=== PATIENT | female | born 1950 | race African-American/Black ===

== ENCOUNTER 2017-08-27 11:13 | Inpatient (IN) | payer MEDICARE, OTHER ==
[2017-08-27] MEDS ORDERED: Ketorolac Tromethamine 30 MG/ML VIAL ONE (12:24)
--- NOTE | 2017-08-27 12:40 | RAD ---
RIGHT ANKLE 3 VIEWS: HISTORY: Tripped out of vehicle on gravel. Trauma. Pain. COMPARISON: None. FINDINGS: There is a trimalleolar fracture with a transverse medial malleolar fracture as well as an obliquely oriented fibula fracture through the syndesmosis and posterior malleolar fracture coronal oblique. IMPRESSION: Supination and external rotation stage 4 injury with syndesmotic injury. POS: [facility]
[2017-08-27 12:54] LABS: #Lymphocytes 1.5 thou/uL (1.20-3.40); #Monocytes 0.5 thou/uL (0.11-0.59); #Neutrophils 5.5 thou/uL (1.40-6.50); %Basophils 0.6 % (0.0-1.0); %Lymphocytes 20.1 % (21.0-51.0); %Monocytes 6.5 % (0.0-10.0); Hematocrit 35.5 % (36.0-47.0); Mean Platelet Volume 7.7 fL (7.4-10.4); Red Blood Cell (RBC) Count 3.78 mill/uL (4.20-5.40); White Blood Cell (WBC) Count 7.5 thou/uL (4.8-10.8)
[2017-08-27 13:14] LABS: ALT (SGPT) 41 U/L (8-55); AST (SGOT) 32 U/L (5-34); Alkaline Phosphatase 90 U/L (40-150); Anion Gap 11 mmol/L (10-20); BUN (Urea Nitrogen) 19 mg/dL (9.8-20.1); Bilirubin, Total 0.4 mg/dL (0.2-1.2); Calc. Creatinine Clearance 0 mL/min (70-130); Calcium 10.2 mg/dL (7.8-10.44); Carbon Dioxide 26 mmol/L (23-31); Chloride 107 mmol/L (98-107); Estimated GFR-MDRD 67; Globulin 2.9 g/dL (2.4-3.5); Protein, Total 7.1 g/dL (6.0-8.3)
--- NOTE | 2017-08-27 13:16 | RAD ---
CHEST 1 VIEW: HISTORY: Preop. COMPARISON: None. FINDINGS: Lungs are clear. No pneumothorax or effusion. Cardiac silhouette and mediastinal contours are norm al. Prior median sternotomy. IMPRESSION: No acute intrathoracic abnormality. POS: [facility]
[2017-08-27] MEDS ORDERED: CEFAZOLIN/Water 2 GM/20 ML SYRINGE ONE (14:59)
[2017-08-27] MEDS ORDERED: Dexamethasone 20 MG/5 ML VIAL ONE (15:35)
[2017-08-27] MEDS ORDERED: Propofol 200 MG/20 ML VIAL ONE (15:35)
[2017-08-27] MEDS ORDERED: Ondansetron HCl/PF 4 MG/2 ML Vial ONE (15:35)
[2017-08-27] MEDS ORDERED: HYDROcodone/Acetaminophen 5/325 mg Tablet PO PRN (15:39)
[2017-08-27] MEDS ORDERED: Fentanyl 100 MCG/2 ML VIAL SLOW IVP PRN (15:40)
[2017-08-27] MEDS ORDERED: Ropivacaine 0.5% HCl/PF (150 MG/30 ML VIAL) ONE (16:27)
[2017-08-27] MEDS ORDERED: Meperidine HCl/PF 25 MG/ML VIAL ONE ×2 (16:35→16:36)
[2017-08-27] MEDS ORDERED: Promethazine HCl 25 MG/ML VIAL IM PRN (16:49)
[2017-08-27] MEDS ORDERED: Ondansetron HCl/PF 4 MG/2 ML Vial IVP PRN (16:49)
[2017-08-27] MEDS ORDERED: Promethazine HCl 25 MG/ML VIAL SLOW IVP PRN (16:49)
[2017-08-27 18:04] VITALS: BMI 28.3
[2017-08-27] MEDS: Sodium Chloride 0.9% 1,000 ML IV SCH (18:33)
--- NOTE | 2017-08-27 19:15 | OP ---
PREOPERATIVE DIAGNOSIS: Trimalleolar ankle fracture. POSTOPERATIVE DIAGNOSIS: Trimalleolar ankle fracture. SURGEON: Marino Martinez M.D. ANESTHESIA: General. BLOOD LOSS: Minimal. SPECIMEN: None. DRAINS: None. COMPLICATIONS: None. TOURNIQUET TIME: 26 minutes. DESCRIPTION OF PROCEDURE: The patient was taken to the operating room where general anesthesia was induced. She received Ancef preoperatively. Right leg was prepped and draped in the usual sterile fashion. After exsanguination, tourniquet was inflated to 300 mmHg. I made a lateral incision. Di ssection carried down to the fracture. The fracture was distracted. Hematoma was removed. The fra cture was irrigated. Periosteum was cleared. I clamped the fracture, placed a posterior to anterio r lag screw to compress the fracture and placed a 7-hole plate with appropriate screw lengths and ch ecked on biplane fluoroscopy. A medial incision was made. Dissection carried down to the medial ma lleolar fragment. I excised periosteum, distracted the fracture and irrigated the joint to clean th e bone surfaces of hematoma, the fracture was reduced into 24 mm. Synthes 3.5 mm cannulated screws were placed with good compression of the fracture. X-rays were once again obtained, which showed go od reduction and fixation and screw length. Tourniquet was released. Irrigation was performed and hemostasis obtained. Subcutaneous tissue closed with 2-0 Vicryl, the skin was closed with aneudy. The patient was placed in a bulky dressing and a posterior splint.
[2017-08-27] MEDS: HYDROcodone/Acetaminophen 5/325 mg Tablet PO PRN (19:55)
--- NOTE | 2017-08-27 20:31 | HP ---
PREOPERATIVE DIAGNOSIS: Right trimalleolar ankle fractures. HISTORY OF PRESENT ILLNESS: This is a very pleasant 67-year-old woman visiting here from [place]. She stepped out of her truck today and rolled her ankle on the step rail and landed on her ankle suf fering a trimalleolar ankle fracture. PAST MEDICAL HISTORY: Positive for diabetes and high cholesterol. ALLERGIES TO MEDICATIONS: None. SOCIAL HISTORY: She does not smoke or drink. She has a good family support. MEDICATIONS: Listed on the chart. PHYSICAL EXAMINATION: GENERAL: Shows a pleasant woman in no distress. HEENT: Normocephalic and atraumatic. LUNGS: Clear. HEART: Regular. ABDOMEN: Soft and nontender. EXTREMITIES: Right ankle shows swelling medially and laterally, but the swelling is mild. She has 1+ pulses. No skin breakdown. Good capillary refill. IMAGING DATA: Radiographs showed trimalleolar ankle fracture. ASSESSMENT AND PLAN: Open reduction and internal fixation. We discussed the options, informed her I will be happy to splint her and let her go back to [place] to have surgery. She would rather have surgery here. She understands the risk of infection, stiffness, nerve or blood vessel damage, poss ible need to remove hardware, blood clots and . She would like to proceed with surgery.
[2017-08-27] MEDS ORDERED: HumaLOG 300 UNITS/3 ML VIAL SC PRN ×2 (22:42)
[2017-08-27] MEDS ORDERED: Dextrose 5% in Water 1,000 ML IV PRN (22:42)
[2017-08-27] MEDS ORDERED: Dextrose 50% Abboject 50 ML SYRINGE IVP PRN (22:42)
[2017-08-28] MEDS: HYDROcodone/Acetaminophen 5/325 mg Tablet PO PRN (01:13)
[2017-08-28] MEDS ORDERED: Enoxaparin Sodium 30 MG/0.3 ML SYRINGE SC SCH ×2 (09:00)
[2017-08-28] MEDS ORDERED: FLU VACC TS2017-18 (>65YR) 0.5 ML SYRINGE IM ONE (09:00)
[2017-08-28] MEDS ORDERED: Montelukast Sodium 10 mg Tablet PO SCH (09:00)
[2017-08-28] MEDS ORDERED: Metoprolol Tartrate 25 MG TAB PO SCH (09:00)
[2017-08-28] MEDS ORDERED: busPIRone HCl 10 MG TAB PO SCH (09:00)
[2017-08-28] MEDS ORDERED: Fluticasone Propionate Nasal Spray 16 gm Bottle NASAL SCH (09:00)
--- NOTE | 2017-08-28 10:24 | RAD ---
RIGHT ANKLE 3 VIEWS: HISTORY: Fracture repair. COMPARISON: Ankle radiographs prior day. FINDINGS: Satisfactory alignment of the medial malleolar and distal fibular fractures with retrograde cannulat ed screws to the medial malleolus as well as plate and screw fixation and interfragmentary screw of the distal fibula. No syndesmotic screw is seen. Therefore, syndesmotic injury ligament testing wa s likely performed intraoperatively. IMPRESSION: Satisfactory appearance post fixation. POS: [facility]
--- NOTE | 2017-08-28 11:54 | PDOC.PN ---
- Subjective Encounter Start Date: 08/28/17 Encounter Start Time: 11:00 Subjective: no pain, feels better -: is trying to amb with her walker without bearing wtg on right -: no sob or chest pain - Objective MAR Reviewed: Yes Vital Signs & Weight: Vital Signs (12 hours) Temp Pulse Resp BP Pulse Ox 08/28/17 08:00 98.2 F 65 14 08/28/17 07:45 98.2 F 65 14 114/72 96 08/27/17 23:55 98.1 F 100 18 101/61 99 Weight Weight 140 lb I&O: 08/27/17 08/28/17 08/29/17 06:59 06:59 06:59 Intake Total 420 Balance 420 Result Diagrams: 08/27/17 12:43 08/27/17 12:43 Additional Labs: Accuchecks 08/28/17 08/28/17 08/27/17 11:04 05:21 20:21 POC Glucose 222 H 139 H 291 H Phys Exam - Physical Examination HEENT: PERRLA, moist MMs Neck: no JVD, supple Respiratory: no wheezing, no rales Cardiovascular: RRR, no significant murmur Gastrointestinal: soft, non-tender, positive bowel sounds Musculoskeletal: pulses present moves her toes on her right side Neurological: non-focal, moves all 4 limbs Psychiatric: A&O x 3 Dx/Plan (1) DM type 2 (diabetes mellitus, type 2) Status: Chronic Qualifiers: Diabetes mellitus complication status: with unspecified complications Diabetes mellitus fci insulin use: without fci use Qualified Code( s): E11.8 - Type 2 diabetes mellitus with unspecified complications (2) HTN (hypertension) Code(s): I10 - ESSENTIAL (PRIMARY) HYPERTENSION Status: Chronic Qualifiers: Hypertension type: essential hypertension Qualified Code(s): I10 - Essential (primary) hypertension (3) Trimalleolar fracture of right ankle Code(s): S82.851A - DISPLACED TRIMALLEOLAR FRACTURE OF RIGHT LOWER LEG, INIT Status: Acute Comment: s/p ORIF - Plan hemostable -: dc plan per ortho advice -: to continue home meds for dm and htn * . Review of Systems - Medications/Allergies Allergies/Adverse Reactions: Allergies Allergy/AdvReac Type Severity Reaction Status Date / Time No Known Drug Allergies Allergy Verified 08/27/17 16:53 Medications: Current Medications Hydrocodone Bitart/Acetaminophen ([place] 5/325) 1 tab PO Q4H PRN PRN Reason: Moderate Pain (4-6) Last Admin: 08/28/17 01:13 Dose: 1 tab Hydrocodone Bitart/Acetaminophen ([place] 5/325) 2 tab PO Q4H PRN PRN Reason: Severe Pain (7-10) Last Admin: 08/28/17 10:05 Dose: 2 tab Buspirone HCl (Buspar) 20 mg PO DAILY [facility] Last Admin: 08/28/17 10:08 Dose: Not Given Dextrose/Water (Dextrose 50%) 25 gm IVP PRN PRN PRN Reason: HYPOGLYCEMIA PROTOCOL Enoxaparin Sodium (Lovenox) 30 mg SC 0900 [facility] Last Admin: 08/28/17 10:07 Dose: 30 mg Fentanyl (Sublimaze) 50 mcg SLOW IVP Q1H PRN PRN Reason: Moderate to Severe Pain (6-10) Fluticasone Propionate (Flonase Nasal [place]) 0 gm NASAL BID [facility] Last Admin: 08/28/17 10:08 Dose: Not Given Glucagon (Glucagon) 1 mg IM PRN PRN PRN Reason: HYPOGLYCEMIA PROTOCOL Sodium Chloride (Normal Saline 0.9%) 1,000 mls @ 50 mls/hr IV .Q20H [facility] Last Admin: 08/27/17 18:33 Dose: 1,000 mls Dextrose/Water (D5w) 1,000 mls @ 0 mls/hr IV INF PRN; As Directed PRN Reason: HYPOGLYCEMIA PROTOCOL Insulin Human Lispro (Humalog) 0 units SC .MODERATE SLIDING SC PRN; Protocol PRN Reason: MODERATE SLIDING SCALE Insulin Human Lispro (Humalog) 0 units SC .BEDTIME SLIDING SC PRN; Protocol PRN Reason: BEDTIME SLIDING SCALE Last Admin: 08/27/17 23:01 Dose: 3 unit Metformin HCl (Glucophage) 500 [facility] Metoprolol Tartrate (Lopressor) 25 mg PO BID [facility] Last Admin: 08/28/17 10:08 Dose: Not Given Montelukast Sodium (Singulair) 10 mg PO DAILY [facility] Last Admin: 08/28/17 10:07 Dose: 10 mg Sodium Chloride (Flush - Normal Saline) 10 ml IVF PRN PRN PRN Reason: Saline Flush
[2017-08-28 11:57] VITALS: BP 102/63; TEMP 98.8
[2017-08-28] MEDS: Sodium Chloride 0.9% 1,000 ML IV SCH (13:28)
[2017-08-28] MEDS ORDERED: metFORMIN 500 MG TAB PO SCH (17:00)
--- NOTE | 2017-08-28 19:25 | DIS ---
DATE OF ADMISSION: 08/27/2017 DATE OF DISCHARGE: 08/28/2017 DISCHARGE DISPOSITION: To home. PRIMARY DISCHARGE DIAGNOSIS: Status post open reduction and internal fixation for right trimalleolar ankle fracture. SECONDARY DISCHARGE DIAGNOSES: 1. Diabetes mellitus type 2. 2. Hypertension. PROCEDURES DONE DURING HOSPITALIZATION: The patient has had ORIF done for the right trimalleolar ankle fracture. Right ankle 3-view x-rays done showed supination and external rotation stage 4 injury with a syndesmotic injury. Discharge H\T\H are 11 and 35 with a platelet count of 208. DISCHARGE MEDICATIONS: The patient to continue aspirin 81 mg p.o. daily, [place] p.r.n. for pain, Victoza 0.6 mg daily, Lopressor 12.5 mg p.o. at bedtime, Singulair 10 mg p.o. daily, Crestor 20 mg p.o. daily, buspirone 20 mg p.o. at bedtime, metformin 500 mg p.o. q.p.m. ALLERGIES: No known drug allergies. DISCHARGE PLAN: The patient is to follow up with her primary care physician in [address] Martinez, Orthopedic surgeon, as advised. BRIEF COURSE DURING HOSPITALIZATION: The patient was brought to the ER after she stepped out of her truck and rolled her ankle on the step rail and landed on her ankles suffering a trimalleolar ankle fracture on the right side. She was admitted by Dr. Martinez and was taken to the operating room for ORIF of the ankle. Postop, sound physicians were consulted for co-management of medical issues. She has remained hemodynamically stable postop. Ms. Dillon Durant has been able to ambulate without weight bearing on the right lower extremity with the help of a rolling walker. She has been cleared for discharge by Dr. Martinez. She needs to follow up with him as advised. Please see a [id number] documentation for the day of discharge on [facility]. [facility]
== END 2017-08-28 14:15 | disposition home or self-care (01) | DRG 494 ==
LOC: ERS 11:13 → SURG B 15:36
PROVIDERS: ADMIT Orthopaedic Surgery; ATTEND Orthopaedic Surgery
PROC: 0QSG04Z Reposition Right Tibia with Internal Fixation Device, Open Approach (ICD-10-PCS; principal; 2017-08-27)
DX: S82.851A Displaced trimalleolar fracture of right lower leg, initial encounter for closed fracture (principal); I10 Essential (primary) hypertension; E11.9 Type 2 diabetes mellitus without complications; W22.09XA Striking against other stationary object, initial encounter; E78.00 Pure hypercholesterolemia, unspecified; Z79.84 Long term (current) use of oral hypoglycemic drugs; Z79.82 Long term (current) use of aspirin
CPT/HCPCS: 36415; 36416; 71010; 76000; 80053; 85025; 86850; 86900; 86901; 90471; 90682; 93005; 96374; C1713; C1769; G0008; G0390; G8978-GP-CK; G8979-GP-CJ; J1100; J1650; J1885; J2175; J2405; J2704; J2795; J3010; Q2036